=== PATIENT | male | born 1945 | race Caucasian/White ===

== ENCOUNTER 2021-02-15 06:42 | Inpatient (IN) ==
--- NOTE | 2021-02-15 07:11 | Emergency Department Note ---
Weakness HPI General Chief complaint: Weakness Stated complaint: weakness Time Seen by Provider: 02/15/21 07:07 Source: patient and EMS Mode of arrival: EMS History of Present Illness HPI Narrative: Narrative: Patient is a 75-year-old male with history of metastatic prostate cancer who has been with complaint of generalized weakness starting approximately 7 hours ago. Patient has had some ongoing difficulty with urination. He has not had any complaint of burning with urination or fever. No vomiting or diarrhea. He has not had any fall or trauma. No reported blood in the urine. His metastases are only to the pelvis area. Patient has at times felt dizzy but is not detailed on what type of dizziness or the specifics of the symptoms. No complaint of any chest pain or shortness of breath. His notes that he has been battling upper respiratory congestion over the past 4 years and is with overuse of Afrin and other nasal sprays. No new medications. His PSA has been adequately controlled. Related Data Home Medications Medication Instructions Recorded Confirmed aspirin 81 mg tablet 81 mg PO QDAY 02/10/16 02/15/21 cyanocobalamin (vitamin B-12) 1 cap PO QDAY 02/10/16 02/15/21 cholecalciferol (vitamin D3) 1 cap PO BID 07/17/17 02/15/21 insulin detemir U-100 100 unit/mL 20 unit SUB-Q QAM ml 12/15/20 02/15/21 subcutaneous solution Previous Rx's Medication Instructions Recorded pen needle, diabetic 31 gauge x #100 each 07/28/2002/14" glimepiride 4 mg tablet 4 mg PO QAM #90 tab 10/20/20 blood sugar diagnostic #100 each 11/03/20 losartan 50 mg-hydrochlorothiazide 1 tab PO QDAY #90 tab 12/29/20 12.5 mg tablet potassium chloride 8 mEq 8 meq PO QDAY #90 cap 12/29/20 capsule,extended release metformin 1,000 mg tablet 1,000 mg PO BID #180 tab 02/11/21 Allergies Allergy/AdvReac Type Severity Reaction Status Date / Time Sulfa (Sulfonamide Allergy Morbilliform Verified 02/15/21 06:49 Antibiotics) rash doxycycline AdvReac Severe Numbness Verified 02/15/21 06:49 Review of Systems ROS ROS Narrative: Narrative: A 10 system review of systems was performed and found to be negative except as outlined above. COUNT INCLUDES THE [facility] Narrative Patient History Narrative: Narrative: Medical/Surgical/Family History All Active Problems (Updated 02/15/21 @ 19:07 by Marquez Thomas MD) Stroke (Acute) Annual physical exam (Acute) Prostate cancer (Acute) Oral mingo (Acute) Breast tenderness (Acute) Oral candidiasis (Acute) Productive cough (Acute) Upper respiratory infection (Acute) Prostate cancer (Chronic) Pseudophakia (Chronic) Paresthesia (Acute) Allergic rhinitis (Chronic) Hypertrophy of nasal turbinates (Chronic) Other specified disorders of nose and nasal sinuses (Chronic) History of shingles (Chronic) Basal cell carcinoma of nose (Chronic) Sinus problem (Chronic) Kidney stones (Chronic) Joint pain, knee (Chronic) Essential hypertension (Chronic) Gallbladder problem (Chronic) DMII (diabetes mellitus, type 2) (Chronic) Daytime sleepiness (Chronic) Acid reflux (Chronic) Medical History (Updated 02/15/21 @ 19:07 by Marquez Thomas MD) Acid reflux Allergic rhinitis Annual physical exam Basal cell carcinoma of nose Daytime sleepiness DMII (diabetes mellitus, type 2) Essential hypertension Gallbladder problem removed History of shingles Hypertrophy of nasal turbinates Joint pain, knee knee replacement Kidney stones > 20 years ago Oral mingo Oral candidiasis Other specified disorders of nose and nasal sinuses Paresthesia Productive cough Pseudophakia Sinus problem Surgical History (Updated 11/18/20 @ 08:25 by [employer]) H/O knee surgery multiple knee surgeries H/O shoulder surgery H/O spinal fusion History of cholecystectomy History of colonoscopy (01/19/15) 12/2014 Dr. Murray Reaves History of knee replacement History of open reduction and internal fixation (ORIF) procedure fractured wrist Family History Sister Arthritis Diabetes mellitus Essential hypertension Brother Diabetes mellitus Essential hypertension Father Myocardial Infarction Mother Migraine headache Cerebrovascular accident (CVA) Social History Smoking Status: Never smoker Alcohol Intake Frequency: 0-2 drinks per day Substance Use: does not use Exam Narrative Narrative: Narrative: General: Alert, Nontoxic, However patient does not answer question with any detail simply nodding. His is doing all of the talking. Difficult to ascertain whether he has in some way impaired, or if he is simply quiet. Did not respond to multiple attempts to encourage him to further professed history or complaints. HEENT: NCAT, PERRL, Oral pharynx with Dry mucus membranes. No pharyngeal erythema. No conjunctival pallor Neck: Supple, No lymphadenopathy Chest: Stable Heart: Regular rate and rhythm without murmur Lungs: Clear to auscultation bilaterally Abdomen: Soft, nondistended, nontender. Rectus diastases. Evidence of prior gallbladder surgery with laparoscopic incision sites. : No bladder distention Back: Nontraumatic, No CVA tenderness to palpation. Skin: No rash or lesion Extremity: No cyanosis or edema, pulses 2+ radial Neurologic: Moves all extremities in appropriate coordinated fashion. Cranial nerves III through XII symmetric and intact. No pronator drift. Strength and sensation appear intact throughout all extremities. Course Vital Signs Vital signs: Vital Signs Temperature 97.8 F 02/15/21 06:43 Pulse Rate 90 02/15/21 06:43 Respiratory Rate 22 02/15/21 06:43 Blood Pressure 164/77 02/15/21 06:43 Pulse Oximetry (%) 95 02/15/21 06:43 Temperature 98.2 F 02/15/21 16:28 Pulse Rate 76 02/15/21 16:28 Respiratory Rate 24 H 02/15/21 18:01 Blood Pressure 164/71 02/15/21 18:01 Pulse Oximetry (%) 94 02/15/21 18:01 [facility] MDM Narrative Medical decision making narrative: Narrative: ECG time 647 demonstrates sinus rhythm at a rate of 89. QRS axis is normal. QRS duration normal and narrow. No ST or T wave changes concerning for ischemic process. There is frequent premature ventricular contractions which are occasionally in a bigeminy pattern. Patient presents with concerning exam but nonfocal. Unfortunately he is also more than 8 hours and probably more than 12 hours after onset of symptoms and since last known normal. CT of the brain did not reveal any acute abnormality but did show evidence of prior infarct. His with still with some concern regarding how he looked despite her reassurance that he has been talking to her normally. Again I have not seen normal conversation for the patient. Given my exam as well as the evidence of prior infarct. I did MRI which unfortunately showed several areas of acute to subacute infarct. Concern is that this could be embolic type stroke. Patient is with risk for hypercoagulable state given his history of prostate cancer. He is without evidence of atrial fibrillation. He will require further work-up including echocardiogram. Spoke with Dr. Larsen stroke neurologist who recommended Plavix as well as the basic stroke work-up. I spoke with Dr. Del Valle who kindly agreed to admit the patient for further care and treatment. Lab Data Result diagrams: 02/15/21 08:18 02/15/21 08:18 Labs: Lab Results 02/15/21 02/15/21 02/15/21 Range/Units 08:10 08:10 08:18 WBC 9.2 (4.5-11.0) K/mcL RBC 3.98 L (4.50-5.90) M/mcL Hgb 13.1 L (13.5-16.5) g/dL Hct 37.4 L (41.0-55.0) % MCV 94.0 (80.0-100.0) fL MCH 32.9 (26.0-34.0) pg MCHC 35.0 (31.0-36.0) g/dL RDW 13.2 (11.5-14.5) % Plt Count 308 (140-440) K/mcL MPV 10.1 (7.4-10.4) fL Neut % (Auto) 76.2 (38.0-78.0) % Lymph % (Auto) 15.7 (15.0-49.0) % [place] % (Auto) 6.9 (1.0-12.0) % Eos % (Auto) 0.5 (0.0-7.0) % Baso % (Auto) 0.7 (0.0-2.0) % Lymph # (Auto) 1.45 L (1.50-4.80) K/mcL [place] # (Auto) 0.64 (0.10-0.90) K/mcL Eos # (Auto) 0.05 (0.00-0.70) K/mcL Baso # (Auto) 0.06 (0.00-0.20) K/mcL Absolute Neutrophils 7.02 (1.80-8.00) K/mcL VBG Lactic Acid (0.5-2.0) mmol/L Sodium (133-145) mmol/L Potassium (3.3-5.1) mmol/L Chloride (96-108) mmol/L Carbon Dioxide (22-30) mmol/L Anion Gap (8.0-16.0) BUN (8-23) mg/dL Creatinine (0.7-1.2) mg/dL GFR Calculation Glucose (70-105) mg/dL Calcium (8.6-10.4) mg/dL Magnesium (1.6-2.5) mg/dL Total Bilirubin (0.1-1.0) mg/dL AST (<40) U/L ALT (<40) U/L Alkaline Phosphatase (39-117) U/L Troponin T (<0.03) ng/mL Total Protein (5.9-8.4) gm/dL Albumin (3.2-5.2) gm/dL Globulin (2.2-3.7) gm/dL Albumin/Globulin Ratio (1.0-2.3) Triglycerides (<150) mg/dL Cholesterol (<200) mg/dL LDL Cholesterol, Calc (<100) mg/dL Non-HDL Cholesterol (<130) mg/dL HDL Cholesterol (>40) mg/dL TSH (0.27-5.01) uIU/mL Urine Color Yellow Urine Appearance Hazy A (Clear) Urine pH 5.0 (5.0-9.0) Ur Specific [place] 1.028 (1.000-1.035) Urine Protein 30 A (Negative) mg/dL Urine Glucose (UA) >=500 A (Negative) mg/dL Urine Ketones 20 A (Negative) mg/dL Urine Occult Blood Negative (Negative) mg/dL Urine Nitrate Negative (Negative) Urine Bilirubin Negative (Negative) mg/dL Urine Urobilinogen Negative mg/dL Ur Leukocyte Esterase Negative (Negative) /ug Urine RBC 1 (0-3) /hpf Urine WBC 1 (0-4) /hpf Ur Squamous Epith Cells 4 (0-4) /hpf Urine Bacteria None (0) /hpf Hyaline Casts 4 H (0-2) /lph Urine Mucus Many A (None) /hpf Ur Culture Indicated? No Urine Alcohol None detected mg/dL Ethyl Alcohol (<0.010) gm/dL 02/15/21 02/15/21 02/15/21 Range/Units 08:18 08:18 08:18 WBC (4.5-11.0) K/mcL RBC (4.50-5.90) M/mcL Hgb (13.5-16.5) g/dL Hct (41.0-55.0) % MCV (80.0-100.0) fL MCH (26.0-34.0) pg MCHC (31.0-36.0) g/dL RDW (11.5-14.5) % Plt Count (140-440) K/mcL MPV (7.4-10.4) fL Neut % (Auto) (38.0-78.0) % Lymph % (Auto) (15.0-49.0) % [place] % (Auto) (1.0-12.0) % Eos % (Auto) (0.0-7.0) % Baso % (Auto) (0.0-2.0) % Lymph # (Auto) (1.50-4.80) K/mcL [place] # (Auto) (0.10-0.90) K/mcL Eos # (Auto) (0.00-0.70) K/mcL Baso # (Auto) (0.00-0.20) K/mcL Absolute Neutrophils (1.80-8.00) K/mcL VBG Lactic Acid 2.0 (0.5-2.0) mmol/L Sodium 136 (133-145) mmol/L Potassium 3.5 (3.3-5.1) mmol/L Chloride 100 (96-108) mmol/L Carbon Dioxide 23 (22-30) mmol/L Anion Gap 13.0 (8.0-16.0) BUN 9 (8-23) mg/dL Creatinine 0.8 (0.7-1.2) mg/dL GFR Calculation 88 Glucose 280 H (70-105) mg/dL Calcium 9.2 (8.6-10.4) mg/dL Magnesium 1.8 (1.6-2.5) mg/dL Total Bilirubin 0.4 (0.1-1.0) mg/dL AST 15 (<40) U/L ALT 16 (<40) U/L Alkaline Phosphatase 63 (39-117) U/L Troponin T < 0.01 (<0.03) ng/mL Total Protein 6.6 (5.9-8.4) gm/dL Albumin 4.3 (3.2-5.2) gm/dL Globulin 2.3 (2.2-3.7) gm/dL Albumin/Globulin Ratio 1.9 (1.0-2.3) Triglycerides (<150) mg/dL Cholesterol (<200) mg/dL LDL Cholesterol, Calc (<100) mg/dL Non-HDL Cholesterol (<130) mg/dL HDL Cholesterol (>40) mg/dL TSH 1.11 (0.27-5.01) uIU/mL Urine Color Urine Appearance (Clear) Urine pH (5.0-9.0) Ur Specific [place] (1.000-1.035) Urine Protein (Negative) mg/dL Urine Glucose (UA) (Negative) mg/dL Urine Ketones (Negative) mg/dL Urine Occult Blood (Negative) mg/dL Urine Nitrate (Negative) Urine Bilirubin (Negative) mg/dL Urine Urobilinogen mg/dL Ur Leukocyte Esterase (Negative) /ug Urine RBC (0-3) /hpf Urine WBC (0-4) /hpf Ur Squamous Epith Cells (0-4) /hpf Urine Bacteria (0) /hpf Hyaline Casts (0-2) /lph Urine Mucus (None) /hpf Ur Culture Indicated? Urine Alcohol mg/dL Ethyl Alcohol (<0.010) gm/dL 02/15/21 02/15/21 Range/Units 08:18 08:18 WBC (4.5-11.0) K/mcL RBC (4.50-5.90) M/mcL Hgb (13.5-16.5) g/dL Hct (41.0-55.0) % MCV (80.0-100.0) fL MCH (26.0-34.0) pg MCHC (31.0-36.0) g/dL RDW (11.5-14.5) % Plt Count (140-440) K/mcL MPV (7.4-10.4) fL Neut % (Auto) (38.0-78.0) % Lymph % (Auto) (15.0-49.0) % [place] % (Auto) (1.0-12.0) % Eos % (Auto) (0.0-7.0) % Baso % (Auto) (0.0-2.0) % Lymph # (Auto) (1.50-4.80) K/mcL [place] # (Auto) (0.10-0.90) K/mcL Eos # (Auto) (0.00-0.70) K/mcL Baso # (Auto) (0.00-0.20) K/mcL Absolute Neutrophils (1.80-8.00) K/mcL VBG Lactic Acid (0.5-2.0) mmol/L Sodium (133-145) mmol/L Potassium (3.3-5.1) mmol/L Chloride (96-108) mmol/L Carbon Dioxide (22-30) mmol/L Anion Gap (8.0-16.0) BUN (8-23) mg/dL Creatinine (0.7-1.2) mg/dL GFR Calculation Glucose (70-105) mg/dL Calcium (8.6-10.4) mg/dL Magnesium (1.6-2.5) mg/dL Total Bilirubin (0.1-1.0) mg/dL AST (<40) U/L ALT (<40) U/L Alkaline Phosphatase (39-117) U/L Troponin T (<0.03) ng/mL Total Protein (5.9-8.4) gm/dL Albumin (3.2-5.2) gm/dL Globulin (2.2-3.7) gm/dL Albumin/Globulin Ratio (1.0-2.3) Triglycerides 289 H (<150) mg/dL Cholesterol 169 (<200) mg/dL LDL Cholesterol, Calc 68 (<100) mg/dL Non-HDL Cholesterol 125 (<130) mg/dL HDL Cholesterol 44 (>40) mg/dL TSH (0.27-5.01) uIU/mL Urine Color Urine Appearance (Clear) Urine pH (5.0-9.0) Ur Specific [place] (1.000-1.035) Urine Protein (Negative) mg/dL Urine Glucose (UA) (Negative) mg/dL Urine Ketones (Negative) mg/dL Urine Occult Blood (Negative) mg/dL Urine Nitrate (Negative) Urine Bilirubin (Negative) mg/dL Urine Urobilinogen mg/dL Ur Leukocyte Esterase (Negative) /ug Urine RBC (0-3) /hpf Urine WBC (0-4) /hpf Ur Squamous Epith Cells (0-4) /hpf Urine Bacteria (0) /hpf Hyaline Casts (0-2) /lph Urine Mucus (None) /hpf Ur Culture Indicated? Urine Alcohol mg/dL Ethyl Alcohol < 0.010 (<0.010) gm/dL CC TIME Critical Care Time Critical Care Time: Yes Total Critical Care Time: 50 Attestation: In this patient with noted weakness and concerning neurologic exam with decreased verbal interaction as well some concern for coordination. This time is exclusive of separate billable procedure. Discharge Plan Patient/Caregiver Discharge Instructions Pt seen by [employer] OFFICER/PA only: No Clinical Impression: Prostate cancer Stroke Qualifiers: CVA mechanism: embolism Precerebral and cerebral artery: unspecified cerebral artery Qualified Code(s): I63.40 - Cerebral infarction due to embolism of unspecified cerebral artery Patient Disposition: Xfer As Inpt ([facility]) Condition: Serious Discharge Date/Time: 02/15/21 16:18
[2021-02-15] MEDS ORDERED: LACTATED RINGERS 1,000 ML IV ONE ×2 (07:34→07:49)
--- NOTE | 2021-02-15 08:09 | XRay Report ---
CLINICAL INFORMATION: weakness COMPARISON: None. FINDINGS: Cardiomediastinal silhouette is accentuated by right rotation and lordotic positioning. It is within normal limits. Pulmonary vessels are unremarkable. Lungs clear. No effusions. IMPRESSION: No cardiopulmonary disease. Heavy calcific tendinitis-right rotator cuff Interpreted and Authenticated by: Wesley Lynne 02/15/21
--- NOTE | 2021-02-15 08:21 | Cat Scan Report ---
CLINICAL INFORMATION: Extremity weakness COMPARISON: 06/07/2016 TECHNIQUE: 2.5 mm helical slices were obtained in the skull base to vertex. Following reconstruction, axial reformatted images were reviewed at bone and parenchymal windows. The exam was performed using radiation dose optimization techniques including, but not limited to, automated exposure control, adjustment of the mA and/or kV according to patient size and use of iterative reconstruction technique. FINDINGS: The ventricles, sulci, fissures, and cisterns are symmetrically enlarged compatible with mild age-related atrophy-no change. No extra-axial fluid collections are identified. Moderate patchy chronic ischemic changes in the cerebral white matter, most prominent in the the right frontal region, are unchanged. There is a 2.2 x 0.8 cm remote infarct in the right frontal white matter, head of the caudate nucleus, anterior limb of the right internal capsule and right lentiform nucleus. No change. 5 mm remote lacunar infarcts seen in the right thalamus and 8 mm remote lacunar infarcts seen in the right hippocampal gyrus. There is no evidence of hemorrhage, mass effect, or edema. Bone windows show no osseous abnormality. IMPRESSION: Mild atrophy with chronic ischemic changes in the cerebral white matter and small remote infarcts-all stable. No intracerebral hemorrhage or other acute finding Subtotal opacification of the visualized right maxillary sinus compatible with sinusitis-no change Interpreted and Authenticated by: Wesley Lynne 02/15/21
[2021-02-15 09:38] LABS: Basophils # (Auto) 0.06 K/mcL (0.00-0.20); Basophils % (Auto) 0.7 % (0.0-2.0); Eosinophils # (Auto) 0.05 K/mcL (0.00-0.70); Eosinophils % (Auto) 0.5 % (0.0-7.0); Hematocrit 37.4 % (41.0-55.0); Hemoglobin 13.1 g/dL (13.5-16.5); Lymphocytes # (Auto) 1.45 K/mcL (1.50-4.80); Lymphocytes % (Auto) 15.7 % (15.0-49.0); Mean Platelet Volume 10.1 fL (7.4-10.4); Monocytes # (Auto) 0.64 K/mcL (0.10-0.90); Monocytes % (Auto) 6.9 % (1.0-12.0); Neutrophils % (Auto) 76.2 % (38.0-78.0); Platelet Count 308 K/mcL (140-440); RBC 3.98 M/mcL (4.50-5.90); Red Cell Distribution Width 13.2 % (11.5-14.5); WBC 9.2 K/mcL (4.5-11.0)
[2021-02-15 09:54] LABS: Alcohol, Blood < 10.0 mg/dL; Alcohol,Blood < 0.010 gm/dL (<0.010)
[2021-02-15 10:12] LABS: ALT/SGPT 16 U/L (<40); AST/SGOT 15 U/L (<40); Albumin 4.3 gm/dL (3.2-5.2); Albumin/Globulin Ratio 1.9 (1.0-2.3); Alkaline Phosphatase 63 U/L (39-117); Bilirubin,Total 0.4 mg/dL (0.1-1.0); Blood Urea Nitrogen 9 mg/dL (8-23); Calcium 9.2 mg/dL (8.6-10.4); Carbon Dioxide 23 mmol/L (22-30); Chloride 100 mmol/L (96-108); Globulin 2.3 gm/dL (2.2-3.7); Glomerular Filtration Rate 88; Glucose 280 mg/dL (70-105); Thyroid Stimulating Hormone 1.11 uIU/mL (0.27-5.01)
[2021-02-15 10:21] LABS: Appearance,Urine HAZY (Clear); Bilirubin,Urine Negative (Negative); Color,Urine YELLOW; Culture Indicated,Urine No; Glucose,Urine (UA) >=500 mg/dL (Negative); Ketones,Urine 20 mg/dL (Negative); Leukocyte Esterase,Urine Negative /ug (Negative); Mucus,Urine MANY /hpf; Nitrate,Urine Negative (Negative); Protein,Urine 30 mg/dL (Negative); Specific Gravity,Urine 1.028 (1.000-1.035); Urine Blood Negative (Negative); Urine Hyaline Cast 4 /lph (0-2); Urine RBC 1 /hpf (0-3); Urine Squamous Epithelial Cell 4 /hpf (0-4); Urine WBC 1 /hpf (0-4); Urobilinogen,Urine Negative
--- NOTE | 2021-02-15 12:21 | Magnetic Resonance Report ---
CLINICAL INFORMATION: right sided weakness, severe weakness COMPARISON: Head CT 02/15/2021. TECHNIQUE: Sagittal T1, axial T2 FLAIR, diffusion ADC weighted images were acquired. FINDINGS: There are cluster of eight acute nonhemorrhagic lacunar infarcts scattered along the the parahippocampal gyrus of the right temporal lobe. It extends to the right splenium the corpus callosum Underlying ventral, sulci fissures and cisterns are slightly enlarged compatible with mild atrophy. There are patchy chronic ischemic changes in the cerebral white matter which are expected for age. Moderate-sized infarct in the right frontal white matter anterior limb right internal capsule lentiform nucleus seen as before. Severe right maxillary sinusitis appreciated. The other paranasal sinuses are clear IMPRESSION: Cluster of approximately eight acute nonhemorrhagic lacunar infarcts scattered along the parahippocampal gyrus of the right temporal lobe. It extends into the right splenium the corpus callosum. No evidence of hemorrhage. Mild atrophy and chronic ischemic changes throughout white matter expected for age. Remote deep white matter infarct right frontal lobe anteriorly right internal capsule Interpreted and Authenticated by: Wesley Lynne 02/15/21
[2021-02-15] MEDS ORDERED: CLOPIDOGREL 75 MG TABLET PO ONE (12:47)
--- NOTE | 2021-02-15 13:43 | Internal Med History&Physical ---
HPI History of Present Illness Patient information: Note initiated : 02/15/21 at 1:33 pm Service Date, if different from initiated Date: [] Patient: Arsh Richardson a 75 y/o M admitted on for Weakness. Chief Complaint: [] History of present illness: Mr. Richardson is a 75 year old M Presents the ED with weakness. Patient went to bed at 10 PM normal. Woke up at 11 try to go the bathroom but slumped down out of the bed. Of her right leg that was weak. His is eventually will get him up in bed slept for few hours and woke up in the morning and he was weak again. continued right leg weakness. He was answering questions but he was short answered per his . He is typically quite talkative but was much more subdued. MRI in the ED showed proximately 8 acute nonhemorrhagic lacunar infarct scattered throughout the parahippocampal gyrus of the right temporal lobe and extended into the right splenium corpus callosum. Chronic ischemic changes were noted. There is a remote infarct right frontal lobe anterior to the right internal capsule. Patient does admit to weakness in his right leg but says sensations are intact. Patient was in sinus rhythm per ED provider. I do not have the EKG at this time. Does report that she still she seen some things indicative of dementia and him. Case discussed with stroke neurologist who is aware of history of prostate cancer and patient being on aspirin. Neurologist recommended Plavix no anticoa gulation even though the imaging shows scattered infarcts. Review of Systems: Pertinent positives as above. Denies headache/fever/chills/nausea/vomiting/chest or abdominal pain/cough/dyspnea/diarrhea. Many 10 point review of system reviewed negative PFSH PFSH All Active Problems (Updated 12/15/20 @ 08:05 by Placido Shaw MD) Annual physical exam (Acute) Prostate cancer (Acute) Oral mingo (Acute) Breast tenderness (Acute) Oral candidiasis (Acute) Productive cough (Acute) Upper respiratory infection (Acute) Prostate cancer (Chronic) Pseudophakia (Chronic) Paresthesia (Acute) Allergic rhinitis (Chronic) Hypertrophy of nasal turbinates (Chronic) Other specified disorders of nose and nasal sinuses (Chronic) History of shingles (Chronic) Basal cell carcinoma of nose (Chronic) Sinus problem (Chronic) Kidney stones (Chronic) Joint pain, knee (Chronic) Essential hypertension (Chronic) Gallbladder problem (Chronic) DMII (diabetes mellitus, type 2) (Chronic) Daytime sleepiness (Chronic) Acid reflux (Chronic) Medical History (Updated 12/15/20 @ 08:05 by Placido Shaw MD) Acid reflux Allergic rhinitis Annual physical exam Basal cell carcinoma of nose Daytime sleepiness DMII (diabetes mellitus, type 2) Essential hypertension Gallbladder problem removed History of shingles Hypertrophy of nasal turbinates Joint pain, knee knee replacement Kidney stones > 20 years ago Oral mingo Oral candidiasis Other specified disorders of nose and nasal sinuses Paresthesia Productive cough Pseudophakia Sinus problem Surgical History (Updated 11/18/20 @ 08:25 by [employer]) H/O knee surgery multiple knee surgeries H/O shoulder surgery H/O spinal fusion History of cholecystectomy History of colonoscopy (01/19/15) 12/2014 Dr. Murray Reaves History of knee replacement History of open reduction and internal fixation (ORIF) procedure fractured wrist Family History Sister Arthritis Diabetes mellitus Essential hypertension Brother Diabetes mellitus Essential hypertension Father Myocardial Infarction Mother Migraine headache Cerebrovascular accident (CVA) Social History marital status: alcohol intake frequency: 0-2 drinks per day substance use type: does not use MEDS/ALLERGIES Home Medications and Allergies Home Medications Medication Instructions Recorded Confirmed Type aspirin 81 mg tablet 81 mg PO QDAY 02/10/16 12/15/20 History cyanocobalamin (vitamin B-12) PO QDAY 02/10/16 12/15/20 History mupirocin 2 % topical ointment 1 applic TOPICAL BID #22 g 07/27/16 12/15/20 Rx cholecalciferol (vitamin D3) See Rx Instructions PO QDAY 07/17/17 12/15/20 History pen needle, diabetic 31 gauge x #100 each 07/28/20 12/15/20 Rx /" glimepiride 4 mg tablet 4 mg PO QAM #90 tab 10/20/20 12/15/20 Rx blood sugar diagnostic #100 each 11/03/20 12/15/20 Rx insulin detemir U-100 100 unit/mL 24 unit SUB-Q QAM ml 12/15/20 History subcutaneous solution losartan 50 mg-hydrochlorothiazide 1 tab PO QDAY #90 tab 12/29/20 Rx 12.5 mg tablet potassium chloride 8 mEq 8 meq PO QDAY #90 cap 12/29/20 Rx capsule,extended release metformin 1,000 mg tablet 1,000 mg PO BID #180 tab 02/11/21 Rx Allergies Allergy/AdvReac Type Severity Reaction Status Date / Time Sulfa (Sulfonamide Allergy Morbilliform Verified 02/15/21 06:49 Antibiotics) rash doxycycline AdvReac Severe Numbness Verified 02/15/21 06:49 EXAM Constitutional Vitals: Temp Pulse Resp BP Pulse Ox 97.8 F 76 16 155/74 95 02/15/21 06:43 02/15/21 13:16 02/15/21 12:45 02/15/21 13:16 02/15/21 13:16 Exam: General: Alert, Awake, No acute Distress Eyes/N/T: EOMI, PERRL, dry MM Head/Neck: neck supple, normocephalic atraumatic CV: RRR, No murmurs, normal s1/s2 Pulm: Clear b/l, no wheezing/rhonchi/rales Abd: soft, nontender, +BS x4 Ext: no clubbing/cyanosis/edema Neuro: Alert, no pronator drift, symmetrical face, no slurring. Sensations intact bilateral upper and lower. Right lower extremity weak, other remedies with strength intact. skin: warm/dry DATA Data Completed and Pending Labs: Labs from last 24 hours 02/15/21 02/15/21 02/15/21 08:18 08:18 08:18 WBC RBC Hgb Hct MCV MCH MCHC RDW Plt Count MPV Neut % (Auto) Lymph % (Auto) [place] % (Auto) Eos % (Auto) Baso % (Auto) Lymph # (Auto) [place] # (Auto) Eos # (Auto) Baso # (Auto) Absolute Neutrophils VBG Lactic Acid 2.0 Sodium Potassium Chloride Carbon Dioxide Anion Gap BUN Creatinine GFR Calculation Glucose Calcium Magnesium Total Bilirubin AST ALT Alkaline Phosphatase Troponin T < 0.01 Total Protein Albumin Globulin Albumin/Globulin Ratio TSH Urine Color Urine Appearance Urine pH Ur Specific Echo Urine Protein Urine Glucose (UA) Urine Ketones Urine Occult Blood Urine Nitrate Urine Bilirubin Urine Urobilinogen Ur Leukocyte Esterase Urine RBC Urine WBC Ur Squamous Epith Cells Urine Bacteria Hyaline Casts Urine Mucus Ur Culture Indicated? Urine Alcohol Ethyl Alcohol < 0.010 02/15/21 02/15/21 02/15/21 08:18 08:18 08:10 WBC 9.2 RBC 3.98 L Hgb 13.1 L Hct 37.4 L MCV 94.0 MCH 32.9 MCHC 35.0 RDW 13.2 Plt Count 308 MPV 10.1 Neut % (Auto) 76.2 Lymph % (Auto) 15.7 [place] % (Auto) 6.9 Eos % (Auto) 0.5 Baso % (Auto) 0.7 Lymph # (Auto) 1.45 L [place] # (Auto) 0.64 Eos # (Auto) 0.05 Baso # (Auto) 0.06 Absolute Neutrophils 7.02 VBG Lactic Acid Sodium 136 Potassium 3.5 Chloride 100 Carbon Dioxide 23 Anion Gap 13.0 BUN 9 Creatinine 0.8 GFR Calculation 88 Glucose 280 H Calcium 9.2 Magnesium 1.8 Total Bilirubin 0.4 AST 15 ALT 16 Alkaline Phosphatase 63 Troponin T Total Protein 6.6 Albumin 4.3 Globulin 2.3 Albumin/Globulin Ratio 1.9 TSH 1.11 Urine Color Yellow Urine Appearance Hazy A Urine pH 5.0 Ur Specific Echo 1.028 Urine Protein 30 A Urine Glucose (UA) >=500 A Urine Ketones 20 A Urine Occult Blood Negative Urine Nitrate Negative Urine Bilirubin Negative Urine Urobilinogen Negative Ur Leukocyte Esterase Negative Urine RBC 1 Urine WBC 1 Ur Squamous Epith Cells 4 Urine Bacteria None Hyaline Casts 4 H Urine Mucus Many A Ur Culture Indicated? No Urine Alcohol Ethyl Alcohol 02/15/21 08:10 WBC RBC Hgb Hct MCV MCH MCHC RDW Plt Count MPV Neut % (Auto) Lymph % (Auto) [place] % (Auto) Eos % (Auto) Baso % (Auto) Lymph # (Auto) [place] # (Auto) Eos # (Auto) Baso # (Auto) Absolute Neutrophils VBG Lactic Acid Sodium Potassium Chloride Carbon Dioxide Anion Gap BUN Creatinine GFR Calculation Glucose Calcium Magnesium Total Bilirubin AST ALT Alkaline Phosphatase Troponin T Total Protein Albumin Globulin Albumin/Globulin Ratio TSH Urine Color Urine Appearance Urine pH Ur Specific Echo Urine Protein Urine Glucose (UA) Urine Ketones Urine Occult Blood Urine Nitrate Urine Bilirubin Urine Urobilinogen Ur Leukocyte Esterase Urine RBC Urine WBC Ur Squamous Epith Cells Urine Bacteria Hyaline Casts Urine Mucus Ur Culture Indicated? 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
[2021-02-15] MEDS ORDERED: ACETAMINOPHEN 325 MG TABLET PO PRN (16:28)
[2021-02-15] MEDS ORDERED: DEXTROSE 31 GM ORAL.SUSP PO PRN (16:28)
[2021-02-15] MEDS ORDERED: 0.9 % SODIUM CHLORIDE 1,000 ML IV SCH (16:28)
[2021-02-15] MEDS ORDERED: ONDANSETRON 4 MG/2 ML VIAL IV PRN (16:28)
[2021-02-15] MEDS ORDERED: POTASSIUM CHLORIDE 20 MEQ TABLET PO PRN ×2 (16:28)
[2021-02-15] MEDS ORDERED: IPRATROPIUM/ALBUTEROL 3 ML AMPUL.NEB NEB PRN (16:28)
[2021-02-15] MEDS ORDERED: LABETALOL 5 MG/ML ML IV PRN (16:28)
[2021-02-15] MEDS ORDERED: MAGNESIUM SULFATE 2 GM/50 ML BAG IV PRN (16:28)
[2021-02-15] MEDS ORDERED: POLYETHYLENE GLYCOL 3350 17 GM PACKET PO PRN (16:28)
[2021-02-15] MEDS ORDERED: DEXTROSE 50% 50 ML VIAL IV PRN (16:28)
[2021-02-15] MEDS ORDERED: POTASSIUM CHLORIDE 40 MEQ in DEXTROSE 5% IN WATER 500 ML IV PRN (16:28)
[2021-02-15] MEDS ORDERED: SENNOSIDES 1 TABLET PO PRN (16:28)
[2021-02-15] MEDS: ASPIRIN 81 MG TAB.CHEW CHEWED SCH (17:26)
[2021-02-15] MEDS: CLOPIDOGREL 75 MG TABLET PO SCH (17:27)
[2021-02-15] MEDS: 0.9 % SODIUM CHLORIDE 10 ML SYRINGE IV SCH ×2 (17:40→20:54)
[2021-02-15] MEDS: INSULIN LISPRO 1 UNIT/0.01 ML UNIT SQ SCH ×2 (17:40→20:53)
[2021-02-15 19:09] LABS: Hemoglobin A1C 7.7 % Hgb (4.0-6.0)
[2021-02-15] MEDS: DOCUSATE SODIUM 100 MG CAPSULE PO SCH ×2 (20:53→21:49)
[2021-02-15] MEDS: ATORVASTATIN 40 MG TABLET PO SCH (20:53)
--- NOTE | 2021-02-16 04:00 | Ultrasound Report ---
CLINICAL INFORMATION: Lacunar infarcts in the right temporal lobe COMPARISON: None. TECHNIQUE: Spectral Doppler velocity measurements were obtained in the proximal, mid and distal common and internal carotid, both vertebral and proximal external carotid arteries bilaterally. Supplemental color and power Doppler imaging was also obtained to optimize stenosis detection. In reporting, any internal carotid stenosis was indirectly quantified comparing the distal internal carotid velocity. For ratio comparison, the internal carotid artery, at the level of stenosis, was utilized in the numerator and the normal distal internal carotid artery velocity was utilized as the denominator. Velocities are validated with angiographic measurements extrapolated from diameter data - as defined by the Society of Radiologists in Ultrasound Consensus Conference .Radiology 2003; 229; 340 - 346. FINDINGS: See worksheet by the technologist for velocities in PACS IMPRESSION: Both common and internal carotid arteries are widely patent. 50% stenoses in both external carotid arteries. Fibrofatty and calcific plaque seen in both carotid bifurcations Antegrade flow present in both vertebral arteries. Please correlate with CTA CT Angiography or MRA MR Angiography if surgery is contemplated. Interpreted and Authenticated by: Wesley Lynne 02/16/21
[2021-02-16] MEDS: 0.9 % SODIUM CHLORIDE 10 ML SYRINGE IV SCH ×3 (05:19→21:02)
[2021-02-16 06:45] LABS: Basophils # (Auto) 0.05 K/mcL (0.00-0.20); Basophils % (Auto) 0.7 % (0.0-2.0); Eosinophils # (Auto) 0.09 K/mcL (0.00-0.70); Eosinophils % (Auto) 1.2 % (0.0-7.0); Hematocrit 35.3 % (41.0-55.0); Hemoglobin 12.2 g/dL (13.5-16.5); Lymphocytes % (Auto) 20.5 % (15.0-49.0); Mean Cell Volume 94.4 fL (80.0-100.0); Mean Corpuscular HGB Conc 34.6 g/dL (31.0-36.0); Mean Platelet Volume 9.7 fL (7.4-10.4); Monocytes % (Auto) 8.2 % (1.0-12.0); Neutrophils % (Auto) 69.4 % (38.0-78.0); Platelet Count 265 K/mcL (140-440); RBC 3.74 M/mcL (4.50-5.90); Red Cell Distribution Width 13.2 % (11.5-14.5); WBC 7.3 K/mcL (4.5-11.0)
--- NOTE | 2021-02-16 07:18 | Internal Med Progress Note ---
SUBJECTIVE Subjective Patient information: Note initiated : 02/16/21 at 7:12 am Service Date, if different from initiated Date: [] Patient: Arsh Richardson a 75 y/o M admitted on 02/15/21 for Weakness. Chief Complaint: [] Interval history: History of present illness: Mr. Richardson is a 75 year old M Presents the ED with weakness. Patient went to bed at 10 PM normal. Woke up at 11 try to go the bathroom but slumped down out of the bed. Of her right leg that was weak. His is eventually will get him up in bed slept for few hours and woke up in the morning and he was weak again. continued right leg weakness. He was answering questions but he was short answered per his . He is typically quite talkative but was much more subdued. MRI in the ED showed proximately 8 acute nonhemorrhagic lacunar infarct scattered throughout the parahippocampal gyrus of the right temporal lobe and extended into the right splenium corpus callosum. Chronic ischemic changes were noted. There is a remote infarct right frontal lobe anterior to the right internal capsule. Patient does admit to weakness in his right leg but says sensations are intact. Patient was in sinus rhythm per ED provider. I do not have the EKG at this time. Does report that she still she seen some things indicative of dementia and him. Case discussed with stroke neurologist who is aware of history of prostate cancer and patient being on aspirin. Neurologist recommended Plavix no anticoagulation even though the imaging shows scattered infarcts. 02/16 Patient nonverbal this morning. Seems to be weaker on the right side. Will obtain CT to rule out hemorrhage although likely evolving ischemic stroke. Unable to gather review of systems given nonverbalization Constitutional Vitals: Vital Signs Temp Pulse Resp BP Pulse Ox 97.6 F 68 19 156/62 96 02/16/21 04:01 02/16/21 06:01 02/16/21 06:01 02/16/21 06:01 02/16/21 06:01 Period Temp Pulse Resp BP Sys/Escalante Pulse Ox Last 24 Hr 97.6 F-98.2 F 61-90 14-32 125-184/59-92 92-99 Intake and Output 02/15/21 02/16/21 02/16/21 21:59 05:59 13:59 Intake Total 120 Output Total 1 3 Balance 119 -3 Weight 97.795 kg Intake & Output: Intake & Output 02/15/21 02/16/21 02/16/21 21:59 05:59 13:59 Intake Total 120 Output Total 1 3 Balance 119 -3 Weight 97.795 kg Intake: Oral 120 Output: # of times incontinent of urine 1 3 Other: Meal Dinner Percent of Meal Consumed 75% Feeding Ability Needs Supervision Exam: General: drowsy, No acute Distress Eyes/N/T: PERRL Head/Neck: neck supple, CV: RRR, No murmurs, Pulm: Clear b/l, no wheezing/rhonchi/rales Abd: soft, nontender, +BS x4 Ext: no clubbing/cyanosis/edema Neuro: drowsy, right eye closed, does not follow commands, right side appears weak. does not verbalize skin: warm/dry OBJ DATA Labs CBC & Chem 7: 02/16/21 05:12 02/16/21 05:12 Labs: Abnormal Lab Results 02/16/21 02/15/21 02/15/21 05:12 08:18 08:18 RBC 3.74 L Hgb 12.2 L Hct 35.3 L Lymph # (Auto) Glucose 280 H Hemoglobin A1c 7.7 H Triglycerides 289 H Urine Appearance Urine Protein Urine Glucose (UA) Urine Ketones Hyaline Casts Urine Mucus 02/15/21 02/15/21 08:18 08:10 RBC 3.98 L Hgb 13.1 L Hct 37.4 L Lymph # (Auto) 1.45 L Glucose Hemoglobin A1c Triglycerides Urine Appearance Hazy A Urine Protein 30 A Urine Glucose (UA) >=500 A Urine Ketones 20 A Hyaline Casts 4 H Urine Mucus Many A Meds: Medications Acetaminophen (Acetaminophen 325 Mg Tablet) 650 mg PO Q6HP PRN PRN Reason: PAIN/FEVER > 101 Albuterol/Ipratropium (Ipratropium/Albuterol 3 Ml Ampul.Neb) 3 ml NEB Q4HP PRN PRN Reason: Shortness Of Breath Aspirin (Aspirin 81 Mg Tab.Chew) 81 mg CHEWED DAILY [facility] Last Admin: 02/15/21 17:26 Dose: 81 mg Documented by: Atorvastatin Calcium (Atorvastatin 40 Mg Tablet) 80 mg PO [facility] Last Admin: 02/15/21 20:53 Dose: 80 mg Documented by: Clopidogrel Bisulfate (Clopidogrel 75 Mg Tablet) 75 mg PO DAILY [facility] Last Admin: 02/15/21 17:27 Dose: 75 mg Documented by: Dextrose (Dextrose 50% 50 Ml Vial) 0 ml IV UD PRN PRN Reason: Hypoglycemia Diagnostic Test (Pha) (Accu-Chek 1 Each Strip) 1 each FS [facility] Last Admin: 02/15/21 20:53 Dose: 1 each Documented by: Docusate Sodium (Docusate Sodium 100 Mg Capsule) 100 mg PO BID [facility] Last Admin: 02/15/21 21:49 Dose: Not Given Documented by: Enoxaparin Sodium (Enoxaparin 40 Mg/0.4 Ml Syringe) 40 mg SQ DAILY [facility] Glucose (Dextrose 31 Gm Oral.Susp) 15 gm PO PRN PRN PRN Reason: Hypoglycemia Potassium Chloride 40 meq/ (Dextrose) 520 mls @ 130 mls/hr IV UD PRN PRN Reason: Potassium < 3 Magnesium Sulfate (Magnesium Sulfate) 2 gm in 50 mls @ 50 mls/hr IV UD PRN PRN Reason: Magnesium </= 1.6 Insulin Human Lispro (Insulin Lispro 1 Unit/0.01 Ml Unit) 0 unit SQ [facility]; Protocol Last Admin: 02/15/21 20:53 Dose: 4 unit Documented by: Labetalol HCl (Labetalol 5 Mg/Ml Ml) 0 mg IV Q2HP PRN PRN Reason: Hypertension Ondansetron HCl (Ondansetron 4 Mg/2 Ml Vial) 4 mg IV Q4HP PRN PRN Reason: Nausea And Vomiting Pantoprazole Sodium (Pantoprazole 40 Mg Tablet) 40 mg PO QAMAC [facility] Polyethylene Glycol (Polyethylene Glycol 3350 17 Gm Packet) 17 gm PO DAILYP PRN PRN Reason: Constipation Potassium Chloride (Potassium Chloride 20 Meq Tablet) 40 meq PO UD PRN PRN Reason: Potssium is 3-3.5 Last Admin: 02/15/21 17:26 Dose: 40 meq Documented by: Potassium Chloride (Potassium Chloride 20 Meq Tablet) 40 meq PO UD PRN PRN Reason: Potassium < 3 Senna (Sennosides 1 Tablet) 2 tab PO DAILYP PRN PRN Reason: Constipation Sodium Chloride (0.9 % Sodium Chloride 10 Ml Syringe) 10 ml IV Q8 [facility] Last Admin: 02/16/21 05:19 Dose: Not Given Documented by: A/P Narrative A/P Narrative: A: *acute cva scattered right temp lobe (h/o cva with old right frontal infarct): -case d/w with stroke neurologist recommends against anticoagulation, recs to start plavix -internal carotid aa's patent, external carotid aa 50% -worsening symptoms, likely evolving stroke vs other, ct pending *Possible early vascular dementia: per history from and old infarct on imaging *DM: A1c 7.7 *HTN: *h/o prostate CA: * P: -CT brain pending for worsening symptroms -plavix/asa -statin, lipid panel -permissive HTN 24-48hrs -echo pending -SSI -pt/ot/ST -cm for placement needs -f/u with Dr. Interiano for external carotid aa stenosis -ppx: lovenox full code Time Spent With Patient Time: Total time spent is greater than 50% in coordination of care (as documented) at patient's floor/unit and/or counseling patient: QUALITY Stroke Symptom Onset Unknown: Yes VTE Deep Vein Thrombosis/Pulmonary Embolism Present on Admission: No
[2021-02-16] MEDS: ENOXAPARIN 40 MG/0.4 ML SYRINGE SQ SCH (07:33)
[2021-02-16] MEDS: PANTOPRAZOLE 40 MG TABLET PO SCH (07:33)
[2021-02-16] MEDS: DOCUSATE SODIUM 100 MG CAPSULE PO SCH ×2 (07:33→21:02)
[2021-02-16] MEDS: CLOPIDOGREL 75 MG TABLET PO SCH (07:33)
[2021-02-16] MEDS: ASPIRIN 81 MG TAB.CHEW CHEWED SCH (07:33)
[2021-02-16] MEDS: INSULIN LISPRO 1 UNIT/0.01 ML UNIT SQ SCH ×4 (07:33→22:00)
[2021-02-16 07:34] LABS: ALT/SGPT 14 U/L (<40); AST/SGOT 15 U/L (<40); Albumin 3.8 gm/dL (3.2-5.2); Albumin/Globulin Ratio 1.9 (1.0-2.3); Alkaline Phosphatase 52 U/L (39-117); Bilirubin,Direct < 0.2 mg/dL (0-0.3); Bilirubin,Total 0.6 mg/dL (0.1-1.0); Blood Urea Nitrogen 7 mg/dL (8-23); Calcium 8.8 mg/dL (8.6-10.4); Carbon Dioxide 25 mmol/L (22-30); Chloride 104 mmol/L (96-108); Glomerular Filtration Rate 93; Glucose 191 mg/dL (70-105); Lactate Dehydrogenase 141 U/L (135-225); Phosphorous 2.7 mg/dL (2.5-4.5); Triglycerides 150 mg/dL (<150); Uric Acid 3.1 mg/dL (2.5-8.0)
--- NOTE | 2021-02-16 10:57 | Cat Scan Report ---
CLINICAL INFORMATION: CVA progression of symptoms COMPARISON: Brain MRI 02/15/2021 TECHNIQUE: 2.5 mm helical slices were obtained in the skull base to vertex. Following reconstruction, axial reformatted images were reviewed at bone and parenchymal windows. The exam was performed using radiation dose optimization techniques including, but not limited to, automated exposure control, adjustment of the mA and/or kV according to patient size and use of iterative reconstruction technique. FINDINGS: The ventricles, sulci, fissures, and cisterns are symmetrically enlarged compatible with mild age-related atrophy-no change. No extra-axial fluid collections are identified. Moderate patchy chronic ischemic changes in the cerebral white matter, most prominent in the the right frontal region, are unchanged. There is a 2.2 x 0.8 cm remote infarct in the right frontal white matter, head of the caudate nucleus, anterior limb of the right internal capsule and right lentiform nucleus. No change. 5 mm remote lacunar infarcts seen in the right thalamus and 8 mm remote lacunar infarcts seen in the right hippocampal gyrus. There is no evidence of hemorrhage, mass effect, or edema. Bone windows show no osseous abnormality. IMPRESSION: Mild atrophy with chronic ischemic changes in the cerebral white matter and small remote infarcts-all stable. No intracerebral hemorrhage or other acute finding No abnormality yet in the region of known acute infarct in the parahippocampal gyrus right temporal lobe. Subtotal opacification of the visualized right maxillary sinus compatible with sinusitis-no change Interpreted and Authenticated by: Wesley Lynne 02/16/21
[2021-02-16] MEDS: DEXTROSE 5%-1/2NS W/20MEQ KCL 1,000 ML IV SCH (16:39)
[2021-02-16] MEDS: ATORVASTATIN 40 MG TABLET PO SCH (21:02)
[2021-02-17] MEDS: DEXTROSE 5%-1/2NS W/20MEQ KCL 1,000 ML IV SCH (04:46)
[2021-02-17] MEDS: 0.9 % SODIUM CHLORIDE 10 ML SYRINGE IV SCH ×3 (05:42→20:30)
--- NOTE | 2021-02-17 07:35 | Internal Med Progress Note ---
SUBJECTIVE Subjective Patient information: Note initiated : 02/17/21 at 7:29 am Service Date, if different from initiated Date: [] Patient: Arsh Richardosn a 75 y/o M admitted on 02/15/21 for Weakness. Chief Complaint: [] Interval history: History of present illness: Mr. Richardson is a 75 year old M Presents the ED with weakness. Patient went to bed at 10 PM normal. Woke up at 11 try to go the bathroom but slumped down out of the bed. Of her right leg that was weak. His is eventually will get him up in bed slept for few hours and woke up in the morning and he was weak again. continued right leg weakness. He was answering questions but he was short answered per his . He is typically quite talkative but was much more subdued. MRI in the ED showed proximately 8 acute nonhemorrhagic lacunar infarct scattered throughout the parahippocampal gyrus of the right temporal lobe and extended into the right splenium corpus callosum. Chronic ischemic changes were noted. There is a remote infarct right frontal lobe anterior to the right internal capsule. Patient does admit to weakness in his right leg but says sensations are intact. Patient was in sinus rhythm per ED provider. I do not have the EKG at this time. Does report that she still she seen some things indicative of dementia and him. Case discussed with stroke neurologist who is aware of history of prostate cancer and patient being on aspirin. Neurologist recommended Plavix no anticoagulation even though the imaging shows scattered infarcts. 02/16 Patient nonverbal this morning. Seems to be weaker on the right side. Will obtain CT to rule out hemorrhage although likely evolving ischemic stroke. 02/17 No change in status. Flaccid on the right and nonverbal. Speech therapy saw yesterday not safe for oral intake. Patient will get NG tube this morning for medications and possible tube feedings. Speech therapy to reevaluate and if continues to be n.p.o. will need to place PEG Unable to gather review of systems given nonverbal status Constitutional Vitals: Vital Signs Temp Pulse Resp BP Pulse Ox 98.7 F 71 27 H 113/73 97 02/17/21 04:01 02/17/21 06:01 02/17/21 06:01 02/17/21 06:01 02/17/21 06:01 Period Temp Pulse Resp BP Sys/Escalante Pulse Ox Last 24 Hr 98.4 F-99.6 F 67-90 14-32 113-181/69-87 89-98 Intake and Output 02/16/21 02/17/21 02/17/21 21:59 05:59 13:59 Intake Total 909 Output Total 1 1 Balance -1 908 Weight 96.933 kg Intake & Output: Intake & Output 02/16/21 02/17/21 02/17/21 21:59 05:59 13:59 Intake Total 909 Output Total 1 1 Balance -1 908 Weight 96.933 kg Intake: IV 909 Dextrose 5%-1/2Ns W/20Meq KCl 1 909 ,000 ml @ 75 mls/hr IV .[id number] [facility] Rx#:[id number] Output: Void Amount 0 0 # of times incontinent of urine 1 1 Other: Urine Odor Normal # Bowel Movements 0 0 Exam: General: drowsy, No acute Distress Eyes/N/T: PERRL Head/Neck: neck supple, CV: RRR, No murmurs, Pulm: Clear b/l, no wheezing/rhonchi/rales Abd: soft, nontender, +BS x4 Ext: no clubbing/cyanosis/edema Neuro: drowsy, does not follow commands, right hemiplegia. does not verbalize, does seem to make eye contact on occasion. skin: warm/dry OBJ DATA Labs CBC & Chem 7: 02/16/21 05:12 02/16/21 05:12 Labs: Abnormal Lab Results 02/16/21 02/16/21 02/15/21 05:12 05:12 08:18 RBC 3.74 L Hgb 12.2 L Hct 35.3 L Lymph # (Auto) BUN 7 L Glucose 191 H Hemoglobin A1c 7.7 H GGT 7 L Total Protein 5.8 L Globulin 2.0 L Triglycerides 150 H 289 H Urine Appearance Urine Protein Urine Glucose (UA) Urine Ketones Hyaline Casts Urine Mucus 02/15/21 02/15/21 02/15/21 08:18 08:18 08:10 RBC 3.98 L Hgb 13.1 L Hct 37.4 L Lymph # (Auto) 1.45 L BUN Glucose 280 H Hemoglobin A1c GGT Total Protein Globulin Triglycerides Urine Appearance Hazy A Urine Protein 30 A Urine Glucose (UA) >=500 A Urine Ketones 20 A Hyaline Casts 4 H Urine Mucus Many A Meds: Medications Acetaminophen (Acetaminophen 325 Mg Tablet) 650 mg PO Q6HP PRN PRN Reason: PAIN/FEVER > 101 Albuterol/Ipratropium (Ipratropium/Albuterol 3 Ml Ampul.Neb) 3 ml NEB Q4HP PRN PRN Reason: Shortness Of Breath Aspirin (Aspirin 81 Mg Tab.Chew) 81 mg CHEWED DAILY [facility] Last Admin: 02/16/21 07:33 Dose: 81 mg Documented by: Atorvastatin Calcium (Atorvastatin 40 Mg Tablet) 80 mg PO HS [facility] Last Admin: 02/16/21 21:02 Dose: Not Given Documented by: Clopidogrel Bisulfate (Clopidogrel 75 Mg Tablet) 75 mg PO DAILY [facility] Last Admin: 02/16/21 07:33 Dose: 75 mg Documented by: Dextrose (Dextrose 50% 50 Ml Vial) 0 ml IV UD PRN PRN Reason: Hypoglycemia Diagnostic Test (Pha) (Accu-Chek 1 Each Strip) 1 each FS ACHS [facility] Last Admin: 02/16/21 22:00 Dose: 1 each Documented by: Docusate Sodium (Docusate Sodium 100 Mg Capsule) 100 mg PO BID [facility] Last Admin: 02/16/21 21:02 Dose: Not Given Documented by: Enoxaparin Sodium (Enoxaparin 40 Mg/0.4 Ml Syringe) 40 mg SQ DAILY [facility] Last Admin: 02/16/21 07:33 Dose: 40 mg Documented by: Glucose (Dextrose 31 Gm Oral.Susp) 15 gm PO PRN PRN PRN Reason: Hypoglycemia Potassium Chloride 40 meq/ (Dextrose) 520 mls @ 130 mls/hr IV UD PRN PRN Reason: Potassium < 3 Magnesium Sulfate (Magnesium Sulfate) 2 gm in 50 mls @ 50 mls/hr IV UD PRN PRN Reason: Magnesium </= 1.6 Potassium Chloride/Dextrose/Sod Cl (Dextrose 5%-1/2ns W/20meq Kcl) 1,000 mls @ 75 mls/hr IV .[id number] [facility] Last Admin: 02/17/21 04:46 Dose: 75 mls/hr Documented by: Insulin Human Lispro (Insulin Lispro 1 Unit/0.01 Ml Unit) 0 unit SQ ACHS [facility]; Protocol Last Admin: 02/16/21 22:00 Dose: 8 unit Documented by: Labetalol HCl (Labetalol 5 Mg/Ml Ml) 0 mg IV Q2HP PRN PRN Reason: Hypertension Ondansetron HCl (Ondansetron 4 Mg/2 Ml Vial) 4 mg IV Q4HP PRN PRN Reason: Nausea And Vomiting Pantoprazole Sodium (Pantoprazole 40 Mg Tablet) 40 mg PO QAMAC [facility] Last Admin: 02/16/21 07:33 Dose: 40 mg Documented by: Polyethylene Glycol (Polyethylene Glycol 3350 17 Gm Packet) 17 gm PO DAILYP PRN PRN Reason: Constipation Potassium Chloride (Potassium Chloride 20 Meq Tablet) 40 meq PO UD PRN PRN Reason: Potssium is 3-3.5 Last Admin: 02/15/21 17:26 Dose: 40 meq Documented by: Potassium Chloride (Potassium Chloride 20 Meq Tablet) 40 meq PO UD PRN PRN Reason: Potassium < 3 Senna (Sennosides 1 Tablet) 2 tab PO DAILYP PRN PRN Reason: Constipation Sodium Chloride (0.9 % Sodium Chloride 10 Ml Syringe) 10 ml IV Q8 [facility] Last Admin: 02/17/21 05:42 Dose: Not Given Documented by: A/P Narrative A/P Narrative: A: *acute cva scattered right temp lobe to corpus callosum (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 Interiano for external carotid aa stenosis -ppx: lovenox full code Time Spent With Patient Time: Total time spent is greater than 50% in coordination of care (as documented) at patient's floor/unit and/or counseling patient: QUALITY Stroke Symptom Onset Unknown: Yes VTE Deep Vein Thrombosis/Pulmonary Embolism Present on Admission: No
[2021-02-17] MEDS: PANTOPRAZOLE 40 MG VIAL IV SCH (09:15)
[2021-02-17] MEDS: INSULIN LISPRO 1 UNIT/0.01 ML UNIT SQ SCH ×4 (09:15→20:42)
[2021-02-17] MEDS: PANTOPRAZOLE 40 MG TABLET PO SCH (09:25)
[2021-02-17] MEDS ORDERED: LIDOCAINE JEL 2% 1 TUBE 5ML TOPICAL ONE (10:47)
[2021-02-17] MEDS: DOCUSATE SODIUM 100 MG CAPSULE PO SCH ×2 (11:21→20:30)
[2021-02-17] MEDS: ASPIRIN 81 MG TAB.CHEW CHEWED SCH (11:27)
[2021-02-17] MEDS: CLOPIDOGREL 75 MG TABLET PO SCH (11:28)
[2021-02-17] MEDS: ENOXAPARIN 40 MG/0.4 ML SYRINGE SQ SCH (11:28)
--- NOTE | 2021-02-17 12:40 | XRay Report ---
CLINICAL INFORMATION: NGT placement by radiology COMPARISON: None. TECHNIQUE: The patient was sedated in the ICU prior to procedure. With the patient supine on the fluoroscopy table, the right nares was topically anesthetized with viscous lidocaine and Cetacaine spray was used to anesthetize oropharynx. NG tube was placed via the right nares through the nasopharynx, oropharynx and the entire esophagus into the stomach under fluoroscopic guidance. Tip was positioned in the gastric body. The tube was then secured to the skin with tape. No apparent complication. IMPRESSION: Successful fluoroscopic guided placement of NG tube tip is in the gastric body. The tube should be functional Interpreted and Authenticated by: Wesley Lynne 02/17/21
[2021-02-17] MEDS: ATORVASTATIN 40 MG TABLET PO SCH (20:29)
[2021-02-18] MEDS: DEXTROSE 5%-1/2NS W/20MEQ KCL 1,000 ML IV SCH ×2 (00:33→13:30)
[2021-02-18] MEDS: 0.9 % SODIUM CHLORIDE 10 ML SYRINGE IV SCH ×2 (05:24→14:05)
--- NOTE | 2021-02-18 07:26 | Internal Med Progress Note ---
SUBJECTIVE Subjective Patient information: Note initiated : 02/18/21 at 7:23 am Service Date, if different from initiated Date: [] Patient: Arsh Richardson 75 y/o M admitted on 02/15/21 for Weakness. Chief Complaint: [] Interval history: History of present illness: Mr. Richardson is a 75 year old M Presents the ED with weakness. Patient went to bed at 10 PM normal. Woke up at 11 try to go the bathroom but slumped down out of the bed. Of her right leg that was weak. His is eventually will get him up in bed slept for few hours and woke up in the morning and he was weak again. continued right leg weakness. He was answering questions but he was short answered per his . He is typically quite talkative but was much more subdued. MRI in the ED showed proximately 8 acute nonhemorrhagic lacunar infarct scattered throughout the parahippocampal gyrus of the right temporal lobe and extended into the right splenium corpus callosum. Chronic ischemic changes were noted. There is a remote infarct right frontal lobe anterior to the right internal capsule. Patient does admit to weakness in his right leg but says sensations are intact. Patient was in sinus rhythm per ED provider. I do not have the EKG at this time. Does report that she still she seen some things indicative of dementia and him. Case discussed with stroke neurologist who is aware of history of prostate cancer and patient being on aspirin. Neurologist recommended Plavix no anticoagulation even though the imaging shows scattered infarcts. 02/16 Patient nonverbal this morning. Seems to be weaker on the right side. Will obtain CT to rule out hemorrhage although likely evolving ischemic stroke. 02/17 No change in status. Flaccid on the right and nonverbal. Speech therapy saw yesterday not safe for oral intake. Patient will get NG tube this morning for medications and possible tube feedings. Speech therapy to reevaluate and if continues to be n.p.o. will need to place PEG 02/18 Patient is flaccid on the right. Nonverbal. Right eyelid closed. Does partially open left eyelid to voice. Stat CT brain ordered given worsening status to rule out hemorrhagic conversion. Unable to gather review of systems given nonverbal status Constitutional Vitals: Vital Signs Temp Pulse Resp BP Pulse Ox 98.7 F 82 30 H 137/74 95 02/18/21 04:01 02/18/21 06:01 02/18/21 06:01 02/18/21 06:01 02/18/21 06:01 Period Temp Pulse Resp BP Sys/Escalante Pulse Ox Last 24 Hr 97.4 F-99.3 F 65-82 14-33 102-181/57-104 91-97 Intake and Output 02/17/21 02/18/21 02/18/21 21:59 05:59 13:59 Intake Total 1090 Output Total 2 3 Balance 1088 -3 Weight 96.343 kg Intake & Output: Intake & Output 02/17/21 02/18/21 02/18/21 21:59 05:59 13:59 Intake Total 1090 Output Total 2 3 Balance 1088 -3 Weight 96.343 kg Intake: IV 1000 Dextrose 5%-1/2Ns W/20Meq KCl 1 1000 ,000 ml @ 75 mls/hr IV .[id number] [facility] Rx#:[id number] Tube Feeding 0 GI Tube Flush 90 Output: # of times incontinent of urine 2 3 Other: Urine Odor Strong Exam: General: No acute Distress Eyes/N/T: PERRL Head/Neck: neck supple, CV: RRR, No murmurs, Pulm: Clear b/l, no wheezing/rhonchi/rales Abd: soft, nontender, +BS x4 Ext: no clubbing/cyanosis/edema Neuro: minimally arousable. right hemiplegia. Responds to pain right upper extremity but does not respond at touch lower extremity. Partially opens left eyelids to voice but not right. Response to touch left upper and lower extremity. skin: warm/dry OBJ DATA Labs CBC & Chem 7: 02/16/21 05:12 02/18/21 05:22 Labs: Abnormal Lab Results 02/16/21 02/16/21 02/15/21 05:12 05:12 08:18 RBC 3.74 L Hgb 12.2 L Hct 35.3 L Lymph # (Auto) BUN 7 L Glucose 191 H Hemoglobin A1c 7.7 H GGT 7 L Total Protein 5.8 L Globulin 2.0 L Triglycerides 150 H 289 H Urine Appearance Urine Protein Urine Glucose (UA) Urine Ketones Hyaline Casts Urine Mucus 05/17/21 05/17/21 05/17/21 08:18 08:18 08:10 RBC 3.98 L Hgb 13.1 L Hct 37.4 L Lymph # (Auto) 1.45 L BUN Glucose 280 H Hemoglobin A1c GGT Total Protein Globulin Triglycerides Urine Appearance Hazy A Urine Protein 30 A Urine Glucose (UA) >=500 A Urine Ketones 20 A Hyaline Casts 4 H Urine Mucus Many A Meds: Medications Acetaminophen (Acetaminophen 325 Mg Tablet) 650 mg PO Q6HP PRN PRN Reason: PAIN/FEVER > 101 Albuterol/Ipratropium (Ipratropium/Albuterol 3 Ml Ampul.Neb) 3 ml NEB Q4HP PRN PRN Reason: Shortness Of Breath Aspirin (Aspirin 81 Mg Tab.Chew) 81 mg CHEWED DAILY [facility] Last Admin: 02/17/21 11:27 Dose: 81 mg Documented by: Atorvastatin Calcium (Atorvastatin 40 Mg Tablet) 80 mg PO HS [facility] Last Admin: 02/17/21 20:29 Dose: 80 mg Documented by: Clopidogrel Bisulfate (Clopidogrel 75 Mg Tablet) 75 mg PO DAILY [facility] Last Admin: 02/17/21 11:28 Dose: 75 mg Documented by: Dextrose (Dextrose 50% 50 Ml Vial) 0 ml IV UD PRN PRN Reason: Hypoglycemia Diagnostic Test (Pha) (Accu-Chek 1 Each Strip) 1 each FS ACHS [facility] Last Admin: 02/17/21 20:41 Dose: 1 each Documented by: Docusate Sodium (Docusate Sodium 100 Mg Capsule) 100 mg PO BID [facility] Last Admin: 02/17/21 20:30 Dose: Not Given Documented by: Enoxaparin Sodium (Enoxaparin 40 Mg/0.4 Ml Syringe) 40 mg SQ DAILY [facility] Last Admin: 02/17/21 11:28 Dose: 40 mg Documented by: Glucose (Dextrose 31 Gm Oral.Susp) 15 gm PO PRN PRN PRN Reason: Hypoglycemia Potassium Chloride 40 meq/ (Dextrose) 520 mls @ 130 mls/hr IV UD PRN PRN Reason: Potassium < 3 Magnesium Sulfate (Magnesium Sulfate) 2 gm in 50 mls @ 50 mls/hr IV UD PRN PRN Reason: Magnesium </= 1.6 Potassium Chloride/Dextrose/Sod Cl (Dextrose 5%-1/2ns W/20meq Kcl) 1,000 mls @ 75 mls/hr IV .[id number] [facility] Last Admin: 02/18/21 00:33 Dose: 75 mls/hr Documented by: Insulin Human Lispro (Insulin Lispro 1 Unit/0.01 Ml Unit) 0 unit SQ [facility]; Protocol Last Admin: 02/17/21 20:42 Dose: 6 unit Documented by: Labetalol HCl (Labetalol 5 Mg/Ml Ml) 0 mg IV Q2HP PRN PRN Reason: Hypertension Ondansetron HCl (Ondansetron 4 Mg/2 Ml Vial) 4 mg IV Q4HP PRN PRN Reason: Nausea And Vomiting Pantoprazole Sodium (Pantoprazole 40 Mg Vial) 40 mg IV QAMAC [facility] Last Admin: 02/17/21 09:15 Dose: 40 mg Documented by: Polyethylene Glycol (Polyethylene Glycol 3350 17 Gm Packet) 17 gm PO DAILYP PRN PRN Reason: Constipation Potassium Chloride (Potassium Chloride 20 Meq Tablet) 40 meq PO UD PRN PRN Reason: Potssium is 3-3.5 Last Admin: 02/15/21 17:26 Dose: 40 meq Documented by: Potassium Chloride (Potassium Chloride 20 Meq Tablet) 40 meq PO UD PRN PRN Reason: Potassium < 3 Senna (Sennosides 1 Tablet) 2 tab PO DAILYP PRN PRN Reason: Constipation Sodium Chloride (0.9 % Sodium Chloride 10 Ml Syringe) 10 ml IV Q8 [facility] Last Admin: 02/18/21 05:24 Dose: Not Given Documented by: A/P Narrative A/P Narrative: A: *acute cva scattered right temp lobe to corpus callosum (h/o cva with old right frontal infarct): right hemiparesis/nonverbal -case d/w with stroke neurologist recommends against anticoagulation, recs to start plavix -internal carotid aa's patent, external carotid aa 50% -echo no thrombus, good EF, diastolic dysfxn -worsening symptoms since admit, repeat CT no hemorrhage/acute findings, repeating today *Encephalopathy: 2/2 above *Vascular dementia: old frontal lobe infarct on imaging corresponding to symptoms at home per *DM: A1c 7.7 *HTN: *h/o prostate CA: * P: -NGT for meds/tube feedings -npo per ST -consult Gen surg for PEG -plavix/asa -statin -permissive HTN 24-48hrs -SSI -pt/ot/ST -cm for placement -f/u with Dr. Interiano for external carotid aa stenosis -ppx: lovenox full code Time Spent With Patient Time: Total time spent is greater than 50% in coordination of care (as documented) at patient's floor/unit and/or counseling patient: QUALITY Stroke Symptom Onset Unknown: Yes VTE Deep Vein Thrombosis/Pulmonary Embolism Present on Admission: No
[2021-02-18] MEDS ORDERED: PANTOPRAZOLE 40 MG VIAL IV SCH (07:30)
[2021-02-18] MEDS: PANTOPRAZOLE 40 MG VIAL IV SCH (07:43)
[2021-02-18] MEDS: INSULIN LISPRO 1 UNIT/0.01 ML UNIT SQ SCH ×3 (08:00→16:05)
[2021-02-18 08:01] LABS: ALT/SGPT 11 U/L (<40); AST/SGOT 13 U/L (<40); Albumin 3.4 gm/dL (3.2-5.2); Albumin/Globulin Ratio 1.4 (1.0-2.3); Alkaline Phosphatase 61 U/L (39-117); Bilirubin,Direct 0.3 mg/dL (<0.3); Bilirubin,Total 1.3 mg/dL (0.1-1.0); Blood Urea Nitrogen 12 mg/dL (8-23); Calcium 8.4 mg/dL (8.6-10.4); Carbon Dioxide 23 mmol/L (22-30); Chloride 104 mmol/L (96-108); Globulin 2.5 gm/dL (2.2-3.7); Glomerular Filtration Rate 99; Glucose 233 mg/dL (70-105); Lactate Dehydrogenase 172 U/L (135-225); Phosphorous 2.3 mg/dL (2.5-4.5); Triglycerides 99 mg/dL (<150); Uric Acid 2.6 mg/dL (2.5-8.0)
[2021-02-18] MEDS ORDERED: INSULIN LISPRO 1 UNIT/0.01 ML UNIT SQ SCH (08:45)
[2021-02-18] MEDS ORDERED: INSULIN GLARGINE, HUMAN 1 UNIT/0.01 ML SQ SCH (09:00)
--- NOTE | 2021-02-18 09:27 | Cat Scan Report ---
CLINICAL INFORMATION: Stroke symptoms COMPARISON: Head CT 02/16/2021 TECHNIQUE: 2.5 mm helical slices were obtained in the skull base to vertex. Following reconstruction, axial reformatted images were reviewed at bone and parenchymal windows. The exam was performed using radiation dose optimization techniques including, but not limited to, automated exposure control, adjustment of the mA and/or kV according to patient size and use of iterative reconstruction technique. FINDINGS: There is a late acute infarct throughout the left anterior cerebral artery distribution involving the paramedian left frontal lobe. This is a new finding from the comparison CT two days prior. This region is low or attenuation with mild cytotoxic edema resulting in slight mass effect. The ventricles and sulci fissures and cisterns are enlarged compatible with underlying atrophy. There is a 2.2 cm remote infarct in the right frontal white matter, head of the caudate nucleus and anterior limb of the right internal capsule. Remote lacunar infarcts in the right thalamus and hippocampal gyrus seen as before. There is no acute cerebral hemorrhage or mass effect. Bone windows show no osseous abnormality. IMPRESSION: Acute infarct in the parafalcine left frontal lobe involving the entire left anterior cerebral artery distribution. No evidence of hemorrhage. There is a new finding since the comparison exam two days ago. No evidence of hemorrhage. Moderate atrophy 2.2 cm old infarct right frontal white matter, right caudate nucleus and anterior limb of the right internal capsule. Remote lacunar infarcts in the remaining basal ganglia-as previously seen. Interpreted and Authenticated by: Wesley Lynne 02/18/21
[2021-02-18] MEDS ORDERED: IOPAMIDOL 100 ML BOTTLE IV ONE (10:49)
[2021-02-18] MEDS: ENOXAPARIN 40 MG/0.4 ML SYRINGE SQ SCH (11:24)
[2021-02-18] MEDS: CLOPIDOGREL 75 MG TABLET PO SCH (11:45)
[2021-02-18] MEDS: ASPIRIN 81 MG TAB.CHEW CHEWED SCH (11:45)
--- NOTE | 2021-02-18 12:11 | Transfer Summary ---
Discharge Provider Provider Patient information: Note initiated : 02/18/21 at 12:09 pm Service Date, if different from initiated Date: [] Patient: Arsh Richardson 75 y/o M admitted on 02/15/21 for Weakness. Chief Complaint: [] Date of admission: 02/15/21 16:19 Discharge date: 02/18/21 Primary care physician: Placido Shaw MD Consults: 02/15/21 Consult to Physician [CONS] Stat Comment: Consulting Provider: Austyn Del Valle Reason For Exam: Physician to Consult Discharge Meds Discharge Medications Home Medications aspirin 81 mg tablet 81 mg PO QDAY 02/10/16 [History Confirmed 02/15/21 Last Taken Unknown] cyanocobalamin (vitamin B-12) 1 cap PO QDAY 02/10/16 [History Confirmed 02/15/21 Last Taken Unknown] cholecalciferol (vitamin D3) 1 cap PO BID 07/17/17 [History Confirmed 02/15/21 Last Taken Unknown] pen needle, diabetic 31 gauge x /" #100 each 07/28/20 [Rx Confirmed 02/15/21 Last Taken Unknown] glimepiride 4 mg tablet 4 mg PO QAM #90 tab 10/20/20 [Rx Confirmed 02/15/21 Last Taken Unknown] blood sugar diagnostic #100 each 11/03/20 [Rx Confirmed 02/15/21 Last Taken Unknown] insulin detemir U-100 100 unit/mL subcutaneous solution 20 unit SUB-Q QAM ml 12/15/20 [History Confirmed 02/15/21 Last Taken Unknown] losartan 50 mg-hydrochlorothiazide 12.5 mg tablet 1 tab PO QDAY #90 tab 12/29/20 [Rx Confirmed 02/15/21 Last Taken Unknown] potassium chloride 8 mEq capsule,extended release 8 meq PO QDAY #90 cap 12/29/20 [Rx Confirmed 02/15/21 Last Taken Unknown] metformin 1,000 mg tablet 1,000 mg PO BID #180 tab 02/11/21 [Rx Confirmed 02/15/21 Last Taken Unknown] COURSE Hospital Course Hospital course: Interval history: History of present illness: Mr. Richardson is a 75 year old M Presents the ED with weakness. Patient went to bed at 10 PM normal. Woke up at 11 try to go the bathroom but slumped down out of the bed. Of her right leg that was weak. His is eventually will get him up in bed slept for few hours and woke up in the morning and he was weak again. continued right leg weakness. He was answering questions but he was short answered per his . He is typically quite talkative but was much more subdued. MRI in the ED showed proximately 8 acute nonhemorrhagic lacunar infarct scattered throughout the parahippocampal gyrus of the right temporal lobe and extended into the right splenium corpus callosum. Chronic ischemic changes were noted. There is a remote infarct right frontal lobe anterior to the right internal capsule. Patient does admit to weakness in his right leg but says sensations are intact. Patient was in sinus rhythm per ED provider. I do not have the EKG at this time. Does report that she still she seen some things indicative of dementia and him. Case discussed with stroke neurologist who is aware of history of prostate cancer and patient being on aspirin. Neurologist recommended Plavix no anticoagulation even though the imaging shows scattered infarcts. 02/16 Patient nonverbal this morning. Seems to be weaker on the right side. Will obtain CT to rule out hemorrhage although likely evolving ischemic stroke. 02/17 No change in status. Flaccid on the right and nonverbal. Speech therapy saw yesterday not safe for oral intake. Patient will get NG tube this morning for medications and possible tube feedings. Speech therapy to reevaluate and if c ontinues to be n.p.o. will need to place PEG 02/18 Patient is flaccid on the right. Nonverbal. Right eyelid closed. Does partially open left eyelid to voice. Stat CT brain ordered given worsening status to rule out hemorrhagic conversion. *Case discussed with neurologist Dr. Porter after repeat CT findings showing left temporal lobe infarct. She asked for CTA head neck prior to transfer up to [place]. Patient was accepted by spool carrier, Dr. Salazar. no thrombus on CTA head/neck per rads. A: *acute cva to right temp lobe to corpus callosum (h/o cva with old right frontal infarct) now to Left frontal lobe: *Encephalopathy: 2/2 above *Vascular dementia: old frontal lobe infarct on imaging corresponding to symptoms at home per *DM: A1c 7.7 *HTN: *h/o prostate CA: * Discharge diagnosis: Stroke encephalopathy Secondary discharge diagnosis: Likely vascular dementia diabetes hypertension prostate cancer Time Spent with Patient Time attestation: Total time spent providing and/or coordinating discharge services: Time spent: Greater than 30 minutes EXAM Constitutional Vitals: Temp Pulse Resp BP Pulse Ox 98.1 F 74 28 H 158/63 92 02/18/21 10:01 02/18/21 10:01 02/18/21 10:01 02/18/21 10:01 02/18/21 10:01 Discharge Data Data Completed and Pending Labs on day of discharge: Labs from last 24 hours 02/18/21 05:22 Sodium 136 Potassium 3.4 Chloride 104 Carbon Dioxide 23 Anion Gap 9.0 BUN 12 Creatinine 0.6 L GFR Calculation 99 Glucose 233 H Uric Acid 2.6 Calcium 8.4 L Phosphorus 2.3 L Magnesium 2.0 Total Bilirubin 1.3 H Direct Bilirubin 0.3 H GGT 7 L AST 13 ALT 11 Alkaline Phosphatase 61 Lactate Dehydrogenase 172 Total Protein 5.9 Albumin 3.4 Globulin 2.5 Albumin/Globulin Ratio 1.4 Triglycerides 99 Discharge Plan Patient/Caregiver Discharge Instructions Activity: increase activity as tolerated Diet: NPO Prescriptions: No Action (DME) pen needle, diabetic [BD Ultra-Fine Short Pen Needle] 31 gauge x 5/16" needle See Rx Instructions .ROUTE .MEDSUPPLY Qty: 100 RF: 3 glimepiride [Amaryl] 4 mg tablet 4 mg PO QAM Qty: 90 RF: 1 (DME) OneTouch Ultra Blue Test Strip Strip See Rx Instructions .ROUTE .MEDSUPPLY Qty: 100 RF: 11 losartan-hydrochlorothiazide [Hyzaar] 50-12.5 mg tablet 1 tab PO QDAY Qty: 90 RF: 1 potassium chloride 8 mEq capsule, extended release 8 meq PO QDAY Qty: 90 RF: 1 metformin [Glucophage] 1,000 mg tablet 1,000 mg PO BID Qty: 180 RF: 1 aspirin 81 mg tablet 81 mg PO QDAY RF: 0 cyanocobalamin (vitamin B-12) 1 cap PO QDAY RF: 0 cholecalciferol (vitamin D3) 1 cap PO BID RF: 0 Levemir U-100 Insulin 100 unit/mL solution 20 unit SUB-Q QAM RF: 0 Follow Up Plan Patient Disposition: [facility] Prognosis: Serious Overall status at discharge: patient is not back to baseline Discharge Orders: Discharge Order (Routine); Ordered 02/18/21 Ordered By: Austyn Del Valle [facility] VTE Deep Vein Thrombosis/Pulmonary Embolism Present on Admission: No
--- NOTE | 2021-02-18 12:17 | Cat Scan Report ---
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 TECHNIQUE: 80 cc of Isovue-370 were injected intravenously , and using SmartPrep to maximize cerebral arterial opacification, 0.625 mm helical slices were obtained from the skull base through the cerebral vertex. Following reconstruction , sagittal, coronal and axial reformatted images were processed and reviewed at multiple windows and levels. 3D volume rendered and MIP images were acquired at a independent workstation. The exam was performed using radiation dose optimization techniques including, but not limited to, automated exposure control, adjustment of the mA and/or kV according to patient size and use of iterative reconstruction technique. FINDINGS: Both intracranial internal carotid, middle cerebral and right anterior cerebral arteries are unremarkable. The intracranial left vertebral artery is diminutive with a dominant intracranial right vertebral artery noted. The basilar artery is normal. The posterior cerebral arteries and branches show scattered stenoses ranging up to 70%. There is a short segment subtotal occlusion of the proximal A2 segment of the anterior cerebral artery which may indicate resolving embolus or thrombus. The distal A2 branches including the pericallosal and callosal marginal are moderately attenuated suggesting resolving thrombus. IMPRESSION: 1. Subtotal occlusion of the short segment of the proximal A2 left anterior cerebral artery segment with attenuation of the A2 branches including, but not limited to, the pericallosal and callosal marginal arteries. Findings suggestive of thrombus or embolus which is partially thrombolyzed resulting in partial reperfusion. 2. Scattered stenoses, ranging up to 70%, throughout both posterior cerebral arteries. 3. Diminutive intracranial left vertebral artery with dominant right vertebral artery. Interpreted and Authenticated by: Wesley Lynne 02/18/21
[2021-02-18] MEDS: DOCUSATE SODIUM 100 MG CAPSULE PO SCH (13:30)
--- NOTE | 2021-02-18 14:45 | Cat Scan Report ---
CLINICAL INFORMATION: Left anterior cerebral artery infarction COMPARISON: None. TECHNIQUE: 80 cc of Isovue-370 were injected intravenously, and using SmartPrep to maximize arterial opacification, 0.625 mm helical slices were obtained from the thoracic aortic arch through the [place]. Following reconstruction, 2.5mm sagittal, coronal and axial reformatted images were processed and reviewed at standard and bone algorithm/window. 3-D volume rendered, CPR and MIP images were processed using a [employer] work station.The exam was performed using radiation dose optimization techniques including, but not limited to, automated exposure control, adjustment of the mA and/or kV according to patient size and use of iterative reconstruction technique. FINDINGS: Thoracic aortic arch is mildly ectatic scattered calcific and fibrofatty plaque. The brachiocephalic, both subclavian, both common, internal and external carotid arteries are widely patent. There is calcific plaque in the posterior carotid bifurcation but does. Not result in stenosis. The right vertebral artery is markedly dominant. An extremely diminutive left vertebral artery originates directly from the thoracic aortic arch. There are no soft tissue abnormalities. No adenopathy. NG tube is seen within the esophagus extending to the mid thoracic level. In the facial region, there is extensive post sinus surgical changes including partial ethmoidectomy turbinectomy and uncinectomy and antral windows. Moderate mucosal thickening seen in the residual maxillary sinuses also scattered within the ethmoid sinuses. The cervical spine is normal in curvature and alignment without significant degeneration. IMPRESSION: 1. Thoracic aortic arch, brachiocephalic, both subclavian, all carotid and vertebral arteries are patent. The right vertebral artery is dominant and a very diminutive left vertebral artery originates directly from the thoracic aortic arch. There is calcific plaque in the carotid bifurcation, but no stenoses. 2. 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 Interpreted and Authenticated by: Wesley Lynne 02/18/21
[2021-02-18] MEDS ORDERED: CHLORHEXIDINE GLUCONATE 1 ML ORAL.SOL SWABMOUTH SCH (21:00)
== END 2021-02-18 13:20 | disposition short-term general hospital (02) | DRG 65 ==
LOC: ED 06:42 → ICU 16:18
PROVIDERS: ADMIT Internal Medicine; ATTEND Internal Medicine